=== PATIENT | female | born 1950 | race Caucasian/White ===

== ENCOUNTER → 2017-07-12 | Outpatient (CLI) | payer OTHER, MEDICARE ==
[~2017-07-12] MED LIST: ASPIRIN EC81 M1 PO; ATORVASTATIN CA10 MG PO; BRILINTA90 MG PO; GLUCOPHAGE500 MG PO; HYDROCODON-ACE1 EAC7; LISINOPRIL2.5 MG PO; LOPRESSOR25 PO; METOPROLOL SUCC25 M1 PO; NITROQUICK0.4 MG SL; ZETIA10 MG PO
== END ==
LOC: M.RAD 14:28
DX: E04.2 Nontoxic multinodular goiter (principal); R94.6 Abnormal results of thyroid function studies; N91.2 Amenorrhea, unspecified; Z78.0 Asymptomatic menopausal state